=== PATIENT | male | born 1970 | race Caucasian/White ===

== ENCOUNTER 2022-06-30 12:25 | Emergency (ER) | payer OTHER ==
[~2022-06-30] VITALS: Ht 157.5 cm; Wt 68.9 kg
[2022-06-30] MEDS ORDERED: IV NORMAL SALINE 1000 ML BAG IV ONE ×2 (12:30)
--- NOTE | 2022-06-30 12:30 | NUR ---
IV ACCESS: 1) iv 20g to L hand inserted. 2) Site clean dry, patent, no sign of infection or inflammation observed
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
--- NOTE | 2022-06-30 13:00 | NUR ---
LABS: 1) RN tool labs for the hospital and for the police. 2) Awaiting results
--- NOTE | 2022-06-30 13:08 | NUR ---
IV FLUIDS: IV 0.9% started bolus to have x2 bags in total.
[2022-06-30 13:11] LABS: HEMATOCRIT 40.2 % (36.7-47.1); MEAN CORPUSCULAR HEMOGLOBIN 32.8 uug (23.8-33.4); MEAN CORPUSCULAR VOLUME 95.3 fL (73.0-96.2); PLATELET COUNT (AUTO) 218 K/uL (152-348)
[2022-06-30 13:43] LABS: ACETAMINOPHEN < 2.0 ug/mL (10-30); ETHANOL 501 MG/DL (0-0)
--- NOTE | 2022-06-30 13:51 | NUR ---
X-RAY: Refused x-ray - aware
[2022-06-30 14:01] LABS: BILIRUBIN,TOTAL 0.1 mg/dL (0.2-1.0); CREATININE 0.7 mg/dL (0.6-1.3); TOTAL PROTEIN, SERUM 7.7 g/dL (6.4-8.2)
--- NOTE | 2022-06-30 14:05 | NUR ---
RESTRAINTS: Taken off - patient more alert and orientated.
--- NOTE | 2022-06-30 14:24 | NUR ---
RESTRAINTS: 1) Pulling lines - MD ordered soft bilateral restraints 2) Order implemented and will check skin as per hospital protocol.
--- NOTE | 2022-06-30 14:25 | NUR ---
NEXT OF KIN DETAILS: 1) Son Sp called and updated with admission incidence. 2) Son on his way to hospital and his contact details are [phone]
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
--- NOTE | 2022-06-30 16:05 | NUR ---
IV FLUIDS: Reinforced iv access - 2nd bag restatered as prescribed.
--- NOTE | 2022-06-30 16:06 | NUR ---
NEXT OF KIN: Patient asking for son, called Sp's number and no response.
--- NOTE | 2022-06-30 16:23 | NUR ---
IMAGIN) Patient more alert - MD informed. 2) Spoke to patient and patient is ready to have the: (i) X-Ray and (ii) CT - Scan 3) Called imaging spok to [place] on Ext [phone] - he will let CT Scan know.
--- NOTE | 2022-06-30 16:48 | NUR ---
IMAGING: Patient is in imaging at the time of this imaging.
[2022-06-30] MEDS ORDERED: THIAMINE HCL INJ 100 MG in IV DEXTROSE 5% 50 ML IV SCH (17:00)
[2022-06-30] MEDS ORDERED: FOLIC ACID 1 MG in IV DEXTROSE 5% 50 ML IV SCH (17:00)
--- NOTE | 2022-06-30 17:14 | NUR ---
Back from CT - Scan & X- ray.
[2022-06-30 17:31] LABS: *BILIRUBIN,URIN NEGATIVE (NEGATIVE); *BLOOD, URINE NEGATIVE (NEGATIVE); *CLARITY,URINE CLEAR (CLEAR); *COLOR,URINE YELLOW (YELLOW); *KETONES,URINE NEGATIVE (NEGATIVE); *UROBILINOGEN,URINE 0.2 E.U./dl (NORMAL); LEUKOCYTE ESTERASE ,URINE NEGATIVE (NEGATIVE); NITRITE, URINE NEGATIVE (NEGATIVE); PH,URINE 5.5 (5.0-8.0); UGLUCOSE NEGATIVE (NEGATIVE)
[2022-06-30 18:22] LABS: *AMPHETAMINE, URINE NEGATIVE (NEGATIVE); *CANNABINOID, URINE NEGATIVE (NEGATIVE); *COCCAINE, URINE NEGATIVE (NEGATIVE); *PHENCYCLIDINE SCREEN,URINE NEGATIVE (NEGATIVE)
--- NOTE | 2022-06-30 18:27 | NUR ---
IV INFUSION: 1) Pharmacy will supply the iv Thamine and Folic Acid. 2) Will endorse care to night staff accordingly.
--- NOTE | 2022-06-30 18:55 | NUR ---
INFUSION MEDICATION: 1) Iv Thiamine running at 102ml/hr as per regime 2) Will endorse to Night Staff accordingly
--- NOTE | 2022-06-30 19:24 | NUR ---
Patient resting in bed with family member at bedside, updated on plan of care. IVF infusing as per order, patient is alert and oriented x4 and calm, will attempt EKG at this time for MD review. will continue to monitor.
[2022-06-30 21:42] VITALS: BP 132/75
--- NOTE | 2022-06-30 21:42 | NUR ---
ACI GIVEN HL WAS REMOVED, REMAINS STABLE FOR DISCHARGE.
== END 2022-06-30 21:43 | disposition home or self-care (01) ==
LOC: ER 12:25
DX: F10.129 Alcohol abuse with intoxication, unspecified (principal); R51.9 Headache, unspecified; M54.2 Cervicalgia; R07.89 Other chest pain; M25.552 Pain in left hip; M25.551 Pain in right hip; V89.2XXA Person injured in unspecified motor-vehicle accident, traffic, initial encounter; Y93.89 Activity, other specified; Y92.89 Other specified places as the place of occurrence of the external cause; Y99.8 Other external cause status; Y90.8 Blood alcohol level of 240 mg/100 ml or more
CPT/HCPCS: 80053; 81003; 83690; 85025; 84484; 36415; 93005; 71045; 73521; 70450; 72125; 99285; 96361; 96365; 96368; 80299; 80320 ×2; 80307; J3490; J3411; J7040 ×2; A4663; G0480